=== PATIENT | female | born 1995 | race Caucasian/White ===

== ENCOUNTER 2022-05-15 16:55 | Emergency (ER) | payer BC, MEDICAID, SELFPAY ==
[2022-05-15 17:04] VITALS: BP 108/73; PULSE 128; RESP 18; TEMP 36.5; O2SAT 97; BMI 35.7
[2022-05-15 17:39] VITALS: PULSE 128; O2SAT 96
--- NOTE | 2022-05-15 17:46 | ED.GENADULT ---
HPI - General Adult General Time Seen by Provider: 17:47 Date Seen: 05/15/22 Chief complaint: Sore Throat Stated complaint: Sore Throat Time Seen by Provider: 05/15/22 17:01 Source: patient Mode of arrival: ambulatory Limitations: no limitations History of Present Illness HPI narrative: The patient presents with her 2 children who both have upper respiratory infection symptoms, fever, cough. She presents with sore throat. She has had a raspy voice. No trismus. Has been generally healthy in the past. She has no cough of significance no chest pain, no leg swelling or edema, is on no medications at home Related Data Home Medications Medication Instructions Recorded Confirmed No Known Home Medications 05/15/22 05/15/22 Allergies Allergy/AdvReac Type Severity Reaction Status Date / Time No Known Drug Allergies Allergy Verified 05/15/22 17:10 Review of Systems Status of ROS: Reports: 6 or more systems reviewed and unremarkable except as noted in History and below PFSH PFSH Social History Smoking Status: Unknown if ever smoked Exam Narrative: Exam Narrative: Objective: In general patient is no apparent distress alert or x3 very pleasant HEENT shows mildly reddened throat no exudate neck is supple chest is clear good peripheral perfusion neurologic tone is unremarkable Const: Vital Signs, click to edit/add: Vital Signs - 24 hr 05/15/22 17:04 05/15/22 17:39 Temperature 97.7 F Pulse Rate [Right Pulse Oximeter] 128 H 128 H Respiratory Rate 18 Blood Pressure [Ri ght Upper Arm] 108/73 Pulse Oximetry 97 96 Oxygen Delivery Me thod Room Air Room Air Course Vital Signs Vital signs: Initial Vital Signs Temperature 97.7 F 05/15/22 17:04 Temperature Source Temporal Artery Scan 05/15/22 17:04 Pulse Rate 128 H 05/15/22 17:04 Respiratory Rate 18 05/15/22 17:04 Blood Pressure 108/73 05/15/22 17:04 Blood Pressure Mean 84 05/15/22 17:04 Blood Pressure Position Sitting 05/15/22 17:04 Pulse Oximetry 97 05/15/22 17:04 Oxygen Delivery Method 05/15/22 17:04 Vital Signs Temperature 97.7 F 05/15/22 17:04 Pulse Rate 128 H 05/15/22 17:04 Respiratory Rate 18 05/15/22 17:04 Blood Pressure 108/73 05/15/22 17:04 Pulse Oximetry 97 05/15/22 17:04 Oxygen Delivery Method 05/15/22 17:04 Temperature 97.7 F 05/15/22 17:04 Pulse Rate 128 H 05/15/22 17:39 Respiratory Rate 18 05/15/22 17:04 Blood Pressure 108/73 05/15/22 17:04 Pulse Oximetry 96 05/15/22 17:39 Oxygen Delivery Method 05/15/22 17:39 Medical Decision Making MDM Narrative Medical decision making narrative: Patient has an upper respiratory infection symptom with pharyngitis, will check strep test, COVID/RSV/influenza. She appears nontoxic. I think she can take some Tylenol and Motrin, update her regular doctor as needed next couple of days, will call her back with the results of her studies, light activity Lab Data Labs: Lab Results 05/15/22 05/15/22 Range/Units 17:04 17:05 SARS-CoV-2 (PCR) Negative SARS-CoV-2 (Negative) Influenza Type A (PCR) Negative PCR FLU A (Negative) Influenza Type B (PCR) Negative PCR FLU B (Negative) RSV (PCR) Negative PCR RSV (Negative) Group A Strep DNA NOT DETECTED (Not Detectd) Discharge Plan Discharge Clinical Impression: Pharyngitis Patient Disposition: Home, Self-Care Condition: Stable Additional Instructions: Light activity, Tylenol and Motrin as needed, we will call back with results of her tests. Update primary care doctor as needed the next 48 hours. Return to ED if any problems or concerns in the interim. Activity Level: Light activity Discharge Diet: Regular Prescriptions: No Action No Known Home Medications Stand Alone Forms: [employer] Info Instructions
[2022-05-15 18:14] LABS: Strep A DNA Probe* NOT DETECTED (Not Detectd)
[2022-05-15 18:28] LABS: PCR FLU A Negative PCR FLU A (Negative); PCR FLU B Negative PCR FLU B (Negative); PCR RSV Negative PCR RSV (Negative)
[2022-05-15 18:32] LABS: SARS PCR* Negative SARS-CoV-2 (Negative)
--- NOTE | 2022-05-15 18:36 | ED.NURSE ---
Called pt with negative results.
== END 2022-05-15 18:01 | disposition home or self-care (01) ==
LOC: ED 17:50
PROVIDERS: Emergency Provider Family Medicine
DX: J02.9 Acute pharyngitis, unspecified (principal)
CPT/HCPCS: 87502; 87634; 87635; 87651; 99283